=== PATIENT | female | born 1995 | race Asian ===

== ENCOUNTER 2025-07-19 05:20 | Inpatient (IN) ==
--- NOTE | 2025-07-12 10:35 | Anesthesiology Consultation ---
Date of Service July 12, 2025 Assessment & Plan (1) Encounter for pre-operative examination: - Per button puncher on 07/12/25: No known infectious disease contacts, current infectious disease symptoms in past 10 days or COVID positive test result in the past 30 days. 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 History Surgery Operation Date: 07/19/25 07:30 Proposed Procedures p Section (Delivery of the Baby Through Abdominal Incision) - Rhianna Gupta MD, FACOG Height/Weight Height: 5 ft 2 in Weight: 94.801 kg Allergies Allergy/AdvReac Type Severity Reaction Status Date / Time No Known Allergies Allergy Verified 07/12/25 08:26 Medications Home Medications Medication Instructions Recorded Confirmed Last Taken docosahexaenoic acid 200 mg 1 mg PO DAILY 08/20/24 07/12/25 Unknown capsule ( DHA) aspirin 81 mg tablet 81 mg PO DAILY #30 tabs 05/17/25 07/12/25 Unknown Past Medical History Medical History (Updated 07/12/25 @ 10:33 by Sherlyn Boss PA-C) Breech presentation Dyslipidemia no meds > borderline History of hypertension White coat syndrome with hypertension Past Family History Family History Mother No problems noted. Father Dyslipidemia Fatty liver Denies family history of Ovarian cancer Prostate cancer Breast cancer Colorectal cancer Uterine cancer Past Surgical History Surgical History S/P wisdom tooth extraction Social History Smoking Status: Never smoker Do You Dip or Chew Tobacco: No Hx Alcohol Use: No Hx Substance Use: No substance use type: does not use
[2025-07-19 05:49] LABS: Hematocrit (blood only) 39.5 % (37.0-47.0); Hemoglobin 13.6 g/dl (12.0-16.0); Immature Granulocytes # (auto) 0.15 K/uL (0.01-0.20); Immature Granulocytes % (auto) 1.2 %; Mean Corpuscular Hemoglobin 29.1 pg (25.0-34.0); Mean Corpuscular Volume 84.4 fL (80.0-100.0); Platelet Count 234 K/uL (130-400); RDW Standard Deviation 43.6 fL (36.4-46.3); Red Blood Count 4.68 M/uL (4.20-5.40); White Blood Count 12.14 K/ul (4.8-10.8)
[2025-07-19] MEDS: LACTATED RINGER'S 1,000 ML IV SCH ×3 (05:50→19:36)
[2025-07-19] MEDS: ACETAMINOPHEN 500 MG TAB PO SCH (06:08)
[2025-07-19 06:49] LABS: Total Protein Urine Random 79.7 mg/dl (0-11.9)
[2025-07-19 06:55] LABS: Protein Creatinine Ratio Urine 2.9 (0-0.2)
[2025-07-19] MEDS: NIFEdipine 10 MG CAP PO STA ×2 (06:55→07:23)
[2025-07-19] MEDS: NIFEdipine 10 MG CAP ONE (06:55)
--- NOTE | 2025-07-19 06:56 | History & Physical Report ---
Date of Service July 19, 2025 Assessment & Plan (1) Breech presentation: Plan: section. The patient was counseled to the nature of the procedure including alternatives such as labor. Risks were discussed including bleeding infection injury to bowel bladder ureter vessels and even baby. Deep Vein thrombosis, pulmonary embolus discussed. Breakdown of incision reviewed. Deep vein thrombosis pulmonary embolus hernia and failure of the incision to heal were discussed Patient verbalized understanding of this and was given ample time to ask questions Admission and Anticipated Discharge Date Admission Date: July 19, 2025 History of Present Illness Primary Care Provider: SELIN Rios Estimated Delivery Date Method Current WG Current Estimate 07/22/25 Ultrasound #1 39w 0d Other Estimates 07/09/25 LMP (Certain) 40w 6d LMP: 10/02/24 : 1 Full term: 0 Premature: 0 Total Number of Induced Abortions: 0 Total Number of Spontaneous Abortions: 0 Ectopics: 0 Multiple births: 0 Number of Living Children: 0 and Delivery Plans ?white coat htn -baby asa (meets criteria separately as well) -baseline bloodwork Rubella Equivocal *PPX MMR BREECH 36wks C/S SCHEDULED FOR 07/19/[address] CALLAHAN Allergies Allergy/AdvReac Type Severity Reaction Status Date / Time No Known Allergies Allergy Verified 07/19/25 05:25 Home Medications Medication Instructions Recorded Confirmed Type docosahexaenoic acid 200 mg 1 mg PO DAILY 08/20/24 07/19/25 History capsule ( DHA) aspirin 81 mg tablet 81 mg PO DAILY #30 tabs 05/17/25 07/19/25 Rx Patient History Medical History Breech presentation Dyslipidemia no meds > borderline History of hypertension White coat syndrome with hypertension Surgical History S/P wisdom tooth extraction Family History Mother No problems noted. Father Dyslipidemia Fatty liver Denies family history of Ovarian cancer Prostate cancer Breast cancer Colorectal cancer Uterine cancer Social History Smoking Status: Never smoker Second Hand Exposure: No; Do You Dip or Chew Tobacco: No; Tobacco Cessation Education Requested by Patient: No Hx Alcohol Use: No Hx Substance Use: No Preferred Language: Cook Islander Communication Ability: Effective Visual Impairment: No Limitations Hearing Ability: Normal Human Services Care Specialist Required: No Beliefs That Will Affect Care: None marital status: marital status details: Armen (32) [phone] Current Living Situation: Spouse and Family Current Living Situation Comment: lives with spouse, and step son 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 Other Information That Helps Us Care for You: No Feels Safe at Home: Yes Safety Concerns: Feels Safe At This Time Childhood Exposure to Second-Hand Smoke: Yes Diet: regular caffeine: Yes during the past year weight has: remained stable Dental Care, Regularly: Yes Physical Activity Frequency: 5-6 Times per Week Seatbelt Use: always Sunscreen Use: Yes Assistive Devices: Glasses Physical Exam Constitutional: WD/WN, vitals as above well developed and well nourished Respiratory: normal respiratory effort, lungs clear to auscultation normal respiratory effort Cardiovascular: RRR, no murmur, no edema Gastrointestinal (Abdomen): normal bowel sounds, soft, nontender, no hepatosplenomegaly Results & Data Vital Signs (Past 12 Hours) Vital Signs Temp Pulse Resp BP 07/19/25 06:49 93 H 187/119 H 07/19/25 06:16 102 H 181/116 H 07/19/25 06:04 96 H 183/115 H 07/19/25 05:48 104 H 182/116 H 07/19/25 05:37 98.2 F 20 Coding Level of Care Code None Diagnoses Breech presentation O32.1XX0
--- NOTE | 2025-07-19 07:10 | History & Physical Report ---
Date of Service July 19, 2025 Assessment & Plan Admission and Anticipated Discharge Date Admission Date: July 19, 2025 History of Present Illness Chief Complaint: breech presentation Primary Care Provider: SELIN Rios 29yo G Allergies Allergy/AdvReac Type Severity Reaction Status Date / Time No Known Allergies Allergy Verified 07/19/25 05:25 Home Medications Medication Instructions Recorded Confirmed Type docosahexaenoic acid 200 mg 1 mg PO DAILY 08/20/24 07/19/25 History capsule ( DHA) aspirin 81 mg tablet 81 mg PO DAILY #30 tabs 05/17/25 07/19/25 Rx Patient History Medical History Breech presentation Dyslipidemia no meds > borderline History of hypertension White coat syndrome with hypertension Surgical History S/P wisdom tooth extraction Family History Mother No problems noted. Father Dyslipidemia Fatty liver Denies family history of Ovarian cancer Prostate cancer Breast cancer Colorectal cancer Uterine cancer Social History Smoking Status: Never smoker Second Hand Exposure: No; Do You Dip or Chew Tobacco: No; Tobacco Cessation Education Requested by Patient: No Hx Alcohol Use: No Hx Substance Use: No Preferred Language: Kyrgyz Communication Ability: Effective Visual Impairment: No Limitations Hearing Ability: Normal Quality Engineer Medical Device Required: No Beliefs That Will Affect Care: None marital status: marital status details: Armen (32) [phone] Current Living Situation: Spouse and Family Current Living Situation Comment: lives with spouse, and step son 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 Information That Helps Us Care for You: No Feels Safe at Home: Yes Safety Concerns: Feels Safe At This Time Childhood Exposure to Second-Hand Smoke: Yes Diet: regular caffeine: Yes during the past year weight has: remained stable Dental Care, Regularly: Yes Physical Activity Frequency: 5-6 Times per Week Seatbelt Use: always Sunscreen Use: Yes Assistive Devices: Glasses Results & Data Vital Signs (Past 12 Hours) Vital Signs Temp Pulse Resp BP 07/19/25 06:49 93 H 187/119 H 07/19/25 06:16 102 H 181/116 H 07/19/25 06:04 96 H 183/115 H 07/19/25 05:48 104 H 182/116 H 07/19/25 05:37 36.8 C 20 Coding
[2025-07-19] MEDS: CITRIC ACID/SODIUM CITRATE 15 ML UDC PO SCH (07:24)
[2025-07-19 07:31] LABS: Anion Gap 9.0 (3-11); Bilirubin,Total 0.4 mg/dl (0.2-1.0); Calcium 8.8 mg/dl (8.6-10.3); Carbon Dioxide 22.0 mmol/L (21-32); Chloride 105.0 mmol/L (98-107); Potassium 4.1 mmol/L (3.5-5.1); Sodium 136.0 mmol/L (136-145)
[2025-07-19] MEDS ORDERED: MoRPHine SULFATE PF 1 MG/ML 10 ML AMP/VIAL ONE (07:32)
[2025-07-19] MEDS ORDERED: PHENYLEPHRINE HCL 25 MG/250 ML NSS IV ONE (07:32)
[2025-07-19 07:37] LABS: Alanine Aminotransferase 12.0 U/L (7-52); Albumin Globulin Ratio 1.1 (0.9-2); Alkaline Phosphatase 102.0 U/L (34-104); Blood Urea Nitrogen 12.0 mg/dl (6-23); Creatinine Clr Calc Pharmacy 175.6 ml/min; Globulin 3.0 gm/dl (2.5-4.0); Glucose 76.0 mg/dl (70-99(Fasting)); Total Protein 6.4 gm/dl (6.0-8.3)
[2025-07-19] MEDS ORDERED: OXYTOCIN 10 UNITS/ML VIAL ONE ×2 (08:18)
[2025-07-19] MEDS ORDERED: MEPERIDINE HCL 25 MG/ML CARP/VIAL IV PRN (08:34)
[2025-07-19] MEDS ORDERED: ONDANSETRON INJ 2 MG/ML 2 ML VIAL IV PRN ×2 (08:34→08:43)
[2025-07-19] MEDS ORDERED: NALBUPHINE HCL INJ 10 MG/ML AMP IV PRN (08:34)
[2025-07-19] MEDS ORDERED: diphenhydrAMINE 50 MG/ML VIAL IV PRN (08:34)
[2025-07-19] MEDS ORDERED: NALOXONE HCL 1 MG in SODIUM CHLORIDE 0.9% 1,000 ML IV PRN (08:34)
[2025-07-19] MEDS ORDERED: PROMETHAZINE 6.25 MG/50.25 ML BAG IV PRN (08:34)
[2025-07-19] MEDS ORDERED: NALOXONE HCL 0.4 MG/1 ML VIAL/CARP IV PRN (08:34)
[2025-07-19] MEDS ORDERED: NALOXONE HCL 0.08 MG in SYRINGE 1.8 ML IV PRN (08:34)
[2025-07-19] MEDS ORDERED: KETOROLAC 30 MG/ML VIAL IV PRN (08:34)
[2025-07-19] MEDS ORDERED: ACETAMINOPHEN 1,000 MG/100 ML VIAL IV PRN (08:34)
[2025-07-19] MEDS ORDERED: HYDROmorphone INJ 0.5 MG/0.5 ML SYR IV PRN (08:34)
[2025-07-19] MEDS ORDERED: MoRPHine SULFATE 2 MG/ML CARP IV PRN (08:34)
[2025-07-19] MEDS ORDERED: MoRPHine SULFATE PF 1 MG/ML 10 ML AMP/VIAL INT SPINAL ONE (08:34)
[2025-07-19] MEDS ORDERED: LACTATED RINGER'S 500 ML IV PRN (08:34)
[2025-07-19] MEDS ORDERED: ONDANSETRON INJ 2 MG/ML 2 ML VIAL ONE (08:37)
[2025-07-19] MEDS ORDERED: ZOLPIDEM TARTRATE 5 MG TAB PO PRN (08:43)
[2025-07-19] MEDS ORDERED: MAGNESIUM HYDROXIDE SUSP 30 ML UDC PO PRN (08:43)
[2025-07-19] MEDS ORDERED: BENZOCAINE 20% SPRY 85 APPLN/85 GM CAN EXT PRN (08:43)
[2025-07-19] MEDS ORDERED: HYDROCORTISONE ACETATE 25 MG SUPP PR PRN (08:43)
[2025-07-19] MEDS ORDERED: SENNA 8.6 MG TAB PO PRN (08:43)
[2025-07-19] MEDS ORDERED: CALCIUM CARBONATE 500 MG CHEWABLE TAB PO PRN (08:43)
[2025-07-19] MEDS ORDERED: PROMETHAZINE 12.5 MG/50.5 ML BAG IV PRN (08:43)
[2025-07-19] MEDS ORDERED: SODIUM CHLORIDE 0.9% 1,000 ML IV SCH (08:45)
[2025-07-19] MEDS ORDERED: NO NARCOTICS OR SEDATIVES SCH (08:45)
[2025-07-19] MEDS ORDERED: DC INTRASPINAL MORPHINE SCH (08:45)
[2025-07-19] MEDS ORDERED: MAG SULFATE 50% 1GM/2ML 10ML VIAL IV ONE (08:47)
[2025-07-19] MEDS: OXYTOCIN 20 UNITS/LR 1,002 ML IV SCH (08:59)
[2025-07-19] MEDS: KETOROLAC 30 MG/ML VIAL IV PRN (09:00)
[2025-07-19] MEDS: MAGNESIUM SULFATE / WTR 40 GM/1,000 ML BAG IV SCH (09:08)
[2025-07-19] MEDS: KETOROLAC 30 MG/ML VIAL IV SCH (09:27)
[2025-07-19] MEDS: MAG SULFATE 4GM BOLUS FROM BAG IV ONE (10:11)
[2025-07-19] MEDS: DIPHTHER/TETAN/PERTUS Vaccine (Tdap, Adol/Adult) 0.5mL IM ONE (10:39)
--- NOTE | 2025-07-19 10:59 | Operative Report ---
PG Post Operative Report Pre & Post Diagnosis Operation Date: 07/19/25 07:30 Pre-Op Diagnosis: (1) Breech presentation Post-Op Diagnosis: (1) Breech presentation I identified the patient and participated in the time-out.: Yes Procedure Operation Date: 07/19/25 07:30 Actual Procedures p Section (Delivery of the Baby Through Abdominal Incision)For delivery of live male at 0816(Bilateral) - Rhianna Gupta MD, FACOG Surgeon Rhianna Gupta MD, FACOG Ecclesiastical Worker Dr. Hartmann Estimated Blood Loss 237 Findings Consistent with Post-Op Diagnosis normal uterus adnexa Specimens cord blood Description of Procedure Description of Procedure Regional anesthetic had been given by anesthesia patient was prepped and draped with a leftward tilt preoperative antibiotics had been given in appropriate timing by anesthesiology. Once the prep was allowed to fully dry timeout was performed. Pickups with teeth were used to test the incision area was found to be adequate for incision as the patient did not feel sharp pain. Scalpel was used to make a Pfannenstiel incision on the lower abdomen. We then cut through the subcutaneous fat down to the level of the anterior rectus sheath fascia this was cut in the midline and then extended laterally with the curved Persaud scissors. At this stage we then placed 2 Julien clamps on the anterior aspect of the fascia. Using the curved Persaud's we are able to dissect the fascia superiorly away from the rectus muscles. Care was taken to maintain hemostasis. Julien clamps were then placed to the inferior aspect of the anterior sheath of the fascia. Fascia was then dissected away from the rectus muscles inferiorly towards the pubic bone. A Julien was then placed in the midline both inferiorly and superiorly. This was to allow exposure by retraction rectus muscles were in the midline with were then able to cut through the peritoneum and then enter the peritoneal cavity. Opening was enlarged to allow exposure of the peritoneal cavity both superiorly and inferiorly. Once adequate space was obtained a bladder retractor was placed to expose the lower segment Metzenbaums were used to dissect the bladder flap inferiorly away from the uterus. This was done sharply bladder retractor was then repositioned to expose the lower segment of the uterus Fresh scalpel was used to make a low transverse incision on the uterus. Uterus was then entered bluntly with the operators finger, membranes ruptured and the opening was enlarged using the operators fingers bluntly pulling superiorly and inferiorly to allow exposure. Baby was delivered by first flexion of the breech to allow elevation out of the pelvis then rotation of the back to anterior gentle traction on the baby delivering both legs and then arms were swept towards the middle of the chest to allow delivery gentle traction on the baby no cord and then head was delivered without extensive extension by ensuring flexion of the head with a gentle finger and the baby's mouth live vigorous male . Live vigorous infant. Fluid was clear cord clamped and cut cord gases obtained cord blood obtained baby handed to pediatrics. Placenta removed was removed with traction we ensure the entire placenta was removed with a moist lap sponge into the uterus Uterus was then exteriorized. IV Pitocin had been started by anesthesia tone improved there were no extensions the uterus was then closed using 0 Monocryl in a 2 layer closure the first layer closed in a running locked fashion from left to right and then a second closure from left to right in a running nonlocked fashion. At this stage hemostasis was excellent. Uterus was placed back in the peritoneal cavity with suction irrigation out and inspection of the uterus at this stage revealed excellent hemostasis Retractors were removed urine color was clear at this stage of the case we inspected the rectus muscles they were hemostatic fascia was closed with 0 Vicryl subcutaneous fat was irrigated and closed with 3-0 Vicryl skin closed with 4-0 subcuticular Monocryl Adnexa were normal uterus was normal there was no septum in the uterus I attest to the content of the Intraoperative Record and any orders documented therein. Any exceptions are noted below. I attest to the content of the Intraoperative Record and any orders documented therein. Any exceptions are noted below. OB Procedure Charges 97736
[2025-07-19] MEDS ORDERED: SODIUM CHLORIDE 0.9% 100 ML IV PRN (11:02)
[2025-07-19] MEDS: ACETAMINOPHEN 325 MG TAB PO SCH (15:06)
--- NOTE | 2025-07-19 15:08 | Anesthesiology Progress Note ---
Date of Service July 19, 2025 Anesthesia Post Procedure Vital Signs Vital Signs: Temp Pulse Resp BP Pulse Ox O2 Del Method 07/19/25 15:03 91 07/19/25 15:03 100 H 07/19/25 14:58 90 07/19/25 14:58 98 H 07/19/25 14:53 89 L 07/19/25 14:53 101 H 07/19/25 14:49 100 H 07/19/25 14:49 115/72 07/19/25 14:48 91 07/19/25 14:48 101 H 07/19/25 14:43 91 07/19/25 14:43 100 H 07/19/25 14:38 93 07/19/25 14:38 109 H 07/19/25 14:33 93 07/19/25 14:33 107 H 07/19/25 14:28 91 07/19/25 14:28 101 H 07/19/25 14:23 91 07/19/25 14:23 101 H 07/19/25 14:19 100 H 07/19/25 14:19 101/62 07/19/25 14:18 91 07/19/25 14:18 99 H 07/19/25 14:13 90 07/19/25 14:13 101 H 07/19/25 14:08 92 07/19/25 14:08 101 H 07/19/25 14:03 95 07/19/25 14:03 108 H 07/19/25 13:58 94 07/19/25 13:58 103 H 07/19/25 13:53 91 07/19/25 13:53 102 H 07/19/25 13:49 103 H 07/19/25 13:49 115/64 07/19/25 13:48 93 07/19/25 13:48 105 H 07/19/25 13:43 94 07/19/25 13:43 102 H 07/19/25 13:41 86 L 07/19/25 13:41 102 H 07/19/25 13:38 92 07/19/25 13:38 100 H 07/19/25 13:33 94 07/19/25 13:33 107 H 07/19/25 13:28 91 07/19/25 13:28 102 H 07/19/25 13:23 93 07/19/25 13:23 101 H 07/19/25 13:19 100 H 07/19/25 13:19 114/67 07/19/25 13:18 93 07/19/25 13:18 102 H 07/19/25 13:13 95 07/19/25 13:13 104 H 07/19/25 13:08 89 L 07/19/25 13:08 107 H 07/19/25 13:03 92 07/19/25 13:03 100 H 07/19/25 13:00 16 07/19/25 13:00 18 98 07/19/25 12:58 90 07/19/25 12:58 101 H 07/19/25 12:53 93 07/19/25 12:53 98 H 07/19/25 12:51 87 L 07/19/25 12:51 102 H 07/19/25 12:49 100 H 07/19/25 12:49 101/63 07/19/25 12:48 87 L 07/19/25 12:48 102 H 07/19/25 12:43 90 07/19/25 12:43 101 H 07/19/25 12:41 86 L 07/19/25 12:41 101 H 07/19/25 12:38 94 07/19/25 12:38 101 H 07/19/25 12:33 95 07/19/25 12:33 103 H 07/19/25 12:28 94 07/19/25 12:28 102 H 07/19/25 12:23 92 07/19/25 12:23 106 H 07/19/25 12:21 105 H 07/19/25 12:21 99/59 L 07/19/25 12:19 103 H 07/19/25 12:19 82/47 L 07/19/25 12:18 89 L 07/19/25 12:18 104 H 07/19/25 12:13 94 07/19/25 12:13 106 H 07/19/25 12:08 95 07/19/25 12:08 107 H 07/19/25 12:03 95 07/19/25 12:03 112 H 07/19/25 12:00 18 07/19/25 12:00 18 98 07/19/25 12:00 18 07/19/25 11:58 97 07/19/25 11:58 118 H 07/19/25 11:53 97 07/19/25 11:53 107 H 07/19/25 11:49 103 H 07/19/25 11:49 107/59 L 07/19/25 11:48 94 07/19/25 11:48 109 H 07/19/25 11:43 95 07/19/25 11:43 108 H 07/19/25 11:38 95 07/19/25 11:38 106 H 07/19/25 11:33 92 07/19/25 11:33 104 H 07/19/25 11:28 95 07/19/25 11:28 104 H 07/19/25 11:23 94 07/19/25 11:23 97 H 07/19/25 11:19 96 H 112/58 L 07/19/25 11:18 97 H 93 07/19/25 11:13 99 H 91 07/19/25 11:08 98 H 92 07/19/25 11:05 100 H 86 L 07/19/25 11:03 99 H 94 07/19/25 11:00 18 07/19/25 10:58 102 H 95 07/19/25 10:53 99 H 91 07/19/25 10:49 18 07/19/25 10:49 96 H 121/70 07/19/25 10:48 97 H 96 07/19/25 10:43 101 H 95 07/19/25 10:38 102 H 96 07/19/25 10:33 100 H 90 07/19/25 10:32 99 H 86 L 07/19/25 10:28 97 H 93 07/19/25 10:23 102 H 96 07/19/25 10:19 18 07/19/25 10:19 98 H 115/65 07/19/25 10:18 101 H 95 07/19/25 10:13 103 H 95 07/19/25 10:08 101 H 95 07/19/25 10:03 100 H 94 07/19/25 10:00 16 07/19/25 09:58 100 H 96 07/19/25 09:53 104 H 95 07/19/25 09:49 18 07/19/25 09:49 107 H 124/63 07/19/25 09:48 106 H 95 07/19/25 09:43 123 H 97 07/19/25 09:40 97 H 84 L 07/19/25 09:39 20 07/19/25 09:39 92 H 119/61 07/19/25 09:38 94 H 88 L 07/19/25 09:35 98 H 86 L 07/19/25 09:33 93 H 91 07/19/25 09:29 16 07/19/25 09:29 102 H 113/61 07/19/25 09:28 103 H 97 07/19/25 09:23 115 H 96 07/19/25 09:22 121 H 114/65 07/19/25 09:20 129 H 112/73 07/19/25 09:19 16 07/19/25 09:18 98 H 98 07/19/25 09:13 101 H 96 07/19/25 09:10 96 H 108/58 L 07/19/25 09:09 18 07/19/25 09:08 96 H 95 07/19/25 09:04 96 H 117/60 07/19/25 09:03 100 H 95 07/19/25 08:59 16 07/19/25 08:59 97 H 111/59 L 07/19/25 08:58 97 H 98 07/19/25 08:53 97 H 98 07/19/25 08:49 16 Room Air 07/19/25 08:49 36.5 C 20 07/19/25 08:49 104 H 109/57 L 07/19/25 08:48 103 H 98 07/19/25 07:30 22 07/19/25 07:30 36.9 C 22 07/19/25 07:20 103 H 155/94 H 07/19/25 07:15 101 H 169/102 H 07/19/25 07:10 103 H 176/112 H 07/19/25 06:49 93 H 187/119 H 07/19/25 06:16 102 H 181/116 H 07/19/25 06:04 96 H 183/115 H 07/19/25 05:48 104 H 182/116 H 07/19/25 05:37 36.8 C 20 Transfer of Care Handoff Completed per policy Notes Mental Status: alert / awake / arousable and participated in evaluation Nausea / Vomiting: adequately controlled Pain: adequately controlled Airway Patency, RR, SpO2: stable & adequate BP & HR: stable & adequate Hydration State: stable & adequate Neuraxial Anesthesia: was administered and sensory block is resolving Anesthetic Complications: no major complications apparent and Pt Satisfied with anesthetic care
[2025-07-19] MEDS: SIMETHICONE 80 MG CHEW PO SCH (16:00)
[2025-07-19] MEDS: DOCUSATE SODIUM 100 MG CAP PO SCH (22:15)
[2025-07-20] MEDS ORDERED: diphenhydrAMINE 50 MG/ML VIAL IV PRN (02:34)
[2025-07-20] MEDS ORDERED: HYDROmorphone INJ 0.5 MG/0.5 ML SYR IV PRN (02:34)
[2025-07-20] MEDS ORDERED: diphenhydrAMINE Capsule 25 MG CAP PO PRN (02:34)
[2025-07-20 06:15] LABS: Hematocrit (blood only) 32.1 % (37.0-47.0); Hemoglobin 11.4 g/dl (12.0-16.0); Immature Granulocytes # (auto) 0.10 K/uL (0.01-0.20); Immature Granulocytes % (auto) 0.8 %; Mean Corpuscular Hemoglobin 30.2 pg (25.0-34.0); Mean Corpuscular Volume 85.1 fL (80.0-100.0); Platelet Count 183 K/uL (130-400); RDW Standard Deviation 44.5 fL (36.4-46.3); Red Blood Count 3.77 M/uL (4.20-5.40); White Blood Count 12.77 K/ul (4.8-10.8)
--- NOTE | 2025-07-20 06:40 | Obstetrical Progress Note ---
Date of Service <Vanita Ashraf DO - Last Filed: 07/20/25 07:49> July 20, 2025 Assessment & Plan <Vanita Ashraf DO - Last Filed: 07/20/25 07:49> (1) care following delivery: Plan 29 yo post- day 1 s/p . Feels well today. Vital signs stable Continue post- care Encourage ambulation when off Mg and Pain controlled with ibuprofen Hgb stable Patient on Mg - continue to monitor, plan to stop Mg at 9am today morning <Larissa Carlson MD, FACOG - Last Filed: 07/20/25 07:54> (1) care following delivery: Subjective <Vanita Ashraf DO - Last Filed: 07/20/25 07:49> 29 yo post- day 1 s/p . Ambulation: no Voiding: no, catheter in Passing Gas:: no Passing Stool:: no Diet Tolerance:: regular diet Lochia:: Small Feeding Type:: breast feeding Current Pain Level: 2/10 Resting comfortably this AM in NAD. She is on Mag which is scheduled to get stopped at 9am this morning. Denies HARTMAN, CP, SOB, N/V/D, LE pain/swelling. Review of Systems All systems reviewed & are unremarkable except as noted in HPI & below Physical Exam <Vanita Ashraf DO - Last Filed: 07/20/25 07:49> General: patient resting comfortably, NAD, non-toxic in appearance, AA&O x 4, answers questions appropriately. Skin: warm, dry, intact HEENT: NC/AT, anicteric sclera, conjunctiva without injection, moist mucus membranes. Heart: +S1/S2, regular, no m/r/g Lungs: equal air entry bilaterally, no rales/rhonchi/wheezes Abd: +BS, soft, NT/ND, uterine fundus firm at umbilicus, caesarean incision C/D/I. Ext: warm, no clubbing/cyanosis or edema, Star's neg. Neuro: nonfocal, patient AA&O x 4, speech intact, no facial droop, moving all extremities on command. Results & Data <Vanita Ashraf - Last Filed: 07/20/25 07:49> Vital Signs (Past 12 Hours) Vital Signs Temp Pulse Resp BP Pulse Ox 07/20/25 06:33 88 96 07/20/25 06:28 87 96 07/20/25 06:23 91 H 97 07/20/25 06:18 91 H 98 07/20/25 06:13 95 H 97 07/20/25 06:08 91 H 95 07/20/25 06:03 95 H 93 07/20/25 06:00 16 07/20/25 05:58 87 93 07/20/25 05:53 94 H 93 07/20/25 05:49 85 125/79 07/20/25 05:48 87 92 07/20/25 05:43 86 93 07/20/25 05:38 89 92 07/20/25 05:33 88 94 07/20/25 05:28 87 94 07/20/25 05:23 88 92 07/20/25 05:18 89 93 07/20/25 05:13 91 H 93 07/20/25 05:08 89 95 07/20/25 05:03 86 97 07/20/25 05:00 18 95 07/20/25 04:58 85 97 07/20/25 04:53 86 98 07/20/25 04:49 87 131/83 07/20/25 04:48 87 89 L 07/20/25 04:43 85 96 07/20/25 04:38 96 H 97 07/20/25 04:33 94 H 97 07/20/25 04:28 91 H 98 07/20/25 04:23 91 H 96 07/20/25 04:18 92 H 98 07/20/25 04:13 99 H 98 07/20/25 04:08 93 H 92 07/20/25 04:03 89 97 07/20/25 04:00 18 97 07/20/25 03:58 91 H 94 07/20/25 03:53 83 95 07/20/25 03:49 80 122/78 07/20/25 03:48 86 96 07/20/25 03:43 90 94 07/20/25 03:38 91 H 95 07/20/25 03:33 86 94 07/20/25 03:28 88 94 07/20/25 03:23 85 93 07/20/25 03:18 89 92 07/20/25 03:13 87 96 07/20/25 03:08 88 95 07/20/25 03:03 87 95 07/20/25 03:00 36.8 C 18 07/20/25 03:00 18 99 07/20/25 03:00 18 07/20/25 02:58 89 95 07/20/25 02:53 105 H 96 07/20/25 02:49 90 127/76 07/20/25 02:48 94 H 95 07/20/25 02:43 95 H 95 07/20/25 02:38 99 H 94 07/20/25 02:33 91 H 93 07/20/25 02:28 91 H 95 07/20/25 02:23 99 H 95 07/20/25 02:18 90 94 07/20/25 02:13 97 H 96 07/20/25 02:08 93 H 96 07/20/25 02:03 92 H 95 07/20/25 02:00 14 95 07/20/25 02:00 14 07/20/25 01:58 93 H 94 07/20/25 01:53 100 H 94 07/20/25 01:49 87 139/89 07/20/25 01:48 88 92 07/20/25 01:43 86 96 07/20/25 01:38 88 95 07/20/25 01:33 86 95 07/20/25 01:28 91 H 96 07/20/25 01:23 103 H 96 07/20/25 01:18 96 H 93 07/20/25 01:13 92 H 94 07/20/25 01:08 102 H 96 07/20/25 01:03 92 H 96 07/20/25 01:00 16 95 07/20/25 01:00 16 07/20/25 00:58 93 H 96 07/20/25 00:53 92 H 97 07/20/25 00:49 101 H 132/79 07/20/25 00:48 101 H 97 07/20/25 00:43 108 H 96 07/20/25 00:38 102 H 97 07/20/25 00:33 96 H 95 07/20/25 00:28 91 H 95 07/20/25 00:23 94 H 92 07/20/25 00:18 85 92 07/20/25 00:13 82 93 07/20/25 00:08 82 93 07/20/25 00:03 83 94 07/20/25 00:00 14 97 07/19/25 23:58 95 07/19/25 23:58 82 07/19/25 23:53 96 07/19/25 23:53 94 H 07/19/25 23:49 84 07/19/25 23:49 128/80 07/19/25 23:48 92 07/19/25 23:48 88 07/19/25 23:43 93 07/19/25 23:43 88 07/19/25 23:38 94 07/19/25 23:38 92 H 07/19/25 23:33 96 07/19/25 23:33 89 07/19/25 23:28 95 07/19/25 23:28 90 07/19/25 23:23 95 07/19/25 23:23 98 H 07/19/25 23:18 96 07/19/25 23:18 89 07/19/25 23:13 96 07/19/25 23:13 92 H 07/19/25 23:08 95 07/19/25 23:08 94 H 07/19/25 23:03 96 07/19/25 23:03 102 H 07/19/25 23:00 16 98 07/19/25 23:00 37.1 C 07/19/25 22:58 96 07/19/25 22:58 103 H 07/19/25 22:53 95 07/19/25 22:53 96 H 07/19/25 22:49 97 H 07/19/25 22:49 122/72 07/19/25 22:48 95 07/19/25 22:48 96 H 07/19/25 22:43 97 07/19/25 22:43 101 H 07/19/25 22:38 95 07/19/25 22:38 101 H 07/19/25 22:33 97 07/19/25 22:33 103 H 07/19/25 22:28 97 07/19/25 22:28 101 H 07/19/25 22:23 96 07/19/25 22:23 97 H 07/19/25 22:18 96 07/19/25 22:18 100 H 07/19/25 22:13 96 07/19/25 22:13 105 H 07/19/25 22:08 94 07/19/25 22:08 95 H 07/19/25 22:03 97 07/19/25 22:03 100 H 07/19/25 22:00 18 97 07/19/25 21:58 97 07/19/25 21:58 100 H 07/19/25 21:53 97 07/19/25 21:53 103 H 07/19/25 21:49 95 H 07/19/25 21:49 132/78 07/19/25 21:48 96 07/19/25 21:48 101 H 07/19/25 21:43 93 07/19/25 21:43 97 H 07/19/25 21:38 95 07/19/25 21:38 105 H 07/19/25 21:33 98 07/19/25 21:33 104 H 07/19/25 21:28 96 07/19/25 21:28 98 H 07/19/25 21:23 97 07/19/25 21:23 107 H 07/19/25 21:18 97 07/19/25 21:18 98 H 07/19/25 21:13 97 07/19/25 21:13 99 H 07/19/25 21:08 98 07/19/25 21:08 109 H 07/19/25 21:03 96 07/19/25 21:03 107 H 07/19/25 21:00 18 99 07/19/25 21:00 16 07/19/25 20:58 96 07/19/25 20:58 97 H 07/19/25 20:53 94 07/19/25 20:53 96 H 07/19/25 20:49 90 07/19/25 20:49 134/82 07/19/25 20:48 94 07/19/25 20:48 94 H 07/19/25 20:43 97 07/19/25 20:43 98 H 07/19/25 20:38 97 07/19/25 20:38 90 07/19/25 20:33 95 07/19/25 20:33 95 H 07/19/25 20:28 98 07/19/25 20:28 105 H 07/19/25 20:23 93 07/19/25 20:23 93 H 07/19/25 20:18 93 07/19/25 20:18 95 H 07/19/25 20:13 92 07/19/25 20:13 91 H 07/19/25 20:08 95 07/19/25 20:08 94 H 07/19/25 20:03 93 07/19/25 20:03 93 H 07/19/25 20:00 16 98 07/19/25 20:00 18 07/19/25 19:58 95 07/19/25 19:58 102 H 07/19/25 19:53 95 07/19/25 19:53 96 H 07/19/25 19:49 94 H 07/19/25 19:49 106/55 L 07/19/25 19:48 94 07/19/25 19:48 96 H 07/19/25 19:43 96 07/19/25 19:43 100 H 07/19/25 19:38 95 07/19/25 19:38 106 H 07/19/25 19:33 95 07/19/25 19:33 110 H 07/19/25 19:28 94 07/19/25 19:28 96 H 07/19/25 19:23 94 07/19/25 19:23 98 H 07/19/25 19:18 93 07/19/25 19:18 99 H 07/19/25 19:13 93 07/19/25 19:13 98 H 07/19/25 19:08 98 07/19/25 19:08 94 H 07/19/25 19:05 16 98 07/19/25 19:03 92 07/19/25 19:03 95 H 07/19/25 19:01 16 07/19/25 19:01 36.8 C 16 07/19/25 18:58 94 07/19/25 18:58 104 H 07/19/25 18:53 94 07/19/25 18:53 101 H 07/19/25 18:49 95 H 07/19/25 18:49 117/72 07/19/25 18:48 93 07/19/25 18:48 96 H 07/19/25 18:43 98 07/19/25 18:43 103 H Laboratory Results OB Labs: Blood Type O Positive 12/31/24 Antibody Screen NEGATIVE 12/31/24 Hgb 13.4 g/dl (12.0-16.0) 04/30/25 Hct 39.4 % (37.0-47.0) 04/30/25 MCV 85.5 fL (80.0-100.0) 12/31/24 Plt Count 314 K/uL (130-400) 12/31/24 Rubella IgG Antibody Equivocal (Immune) L 12/31/24 Treponema pallidum Ab Negative (Negative) 04/30/25 Hep Bs Antigen Negative (Negative) 12/31/24 Hepatitis C Antibody Negative (Negative) 12/31/24 Hepatitis C Ab (EIA) NON-REACTIVE (NON-REACTIVE) 01/15/24 HIV 1&2 Ab/P24 Ag 4thGn Negative (Negative) 12/31/24 Glucose 1 Hr 50 gm 133 mg/dl (70-130) H 04/30/25 OB Optional Labs: Chlamydia trachomatis RNA Not Detected (NotDetected) 12/31/24 Neisseria gonorrhoeae RNA Not Detected (NotDetected) 12/31/24 Thyroid Stimulating Hormone (TSH) 1.804 uIu/ml (0.300-4.500) 08/26/24 Supervising Physician <Larissa Carlson MD, FACOG - Last Filed: 07/20/25 07:54> Co-Signing Physician Notes Resident Physician Supervision Note: I interviewed and examined the patient. Discussed with Dr. Dominguez and agree with findings and plan as documented in the note. Any exceptions or clarifications are listed here: Doing well. Plan d/c mag at 9am then transfer to the floor , see other note. Documented By: Larissa Carlson MD, FACOG Resident Activity Tracking <Vanita Ashraf DO - Last Filed: 07/20/25 07:49> Resident Involvement: Resident Care Provided Care Provided: OB Delivery
--- NOTE | 2025-07-20 06:42 | Obstetrical Progress Note ---
Date of Service July 20, 2025 Assessment & Plan (1) care following delivery: (2) Preeclampsia: Plan Plan to stop mag at 9am as she will be at 24 hours. Doing overall well. Pressures have been good and uop good. Then plan transfer to the floor. Day #:: 1 Subjective Patient got some rest overnight. She notes no s/s of pet. She is anxious for the mag to be off. Notes no bejarano. Good uop Physical Exam Constitutional WD/WN, vitals as above Cardiovascular Extremities: + edema (tr); no calf tenderness Gastrointestinal (Abdomen) soft, nt, nd, ff/nt at u incision c/d/i Neurologic patellar DTR's 2+ bilat, sensation intact Genitourinary no vaginal lesions, no adnexal mass Results & Data Vital Signs (Past 12 Hours) Vital Signs Temp Pulse Resp BP Pulse Ox 07/20/25 06:38 86 07/20/25 06:33 88 96 07/20/25 06:28 87 96 07/20/25 06:23 91 H 97 07/20/25 06:18 91 H 98 07/20/25 06:13 95 H 97 07/20/25 06:08 91 H 95 07/20/25 06:03 95 H 93 07/20/25 06:00 16 07/20/25 05:58 87 93 07/20/25 05:53 94 H 93 07/20/25 05:49 85 125/79 07/20/25 05:48 87 92 07/20/25 05:43 86 93 07/20/25 05:38 89 92 07/20/25 05:33 88 94 07/20/25 05:28 87 94 07/20/25 05:23 88 92 07/20/25 05:18 89 93 07/20/25 05:13 91 H 93 07/20/25 05:08 89 95 07/20/25 05:03 86 97 07/20/25 05:00 18 95 07/20/25 04:58 85 97 07/20/25 04:53 86 98 07/20/25 04:49 87 131/83 07/20/25 04:48 87 89 L 07/20/25 04:43 85 96 07/20/25 04:38 96 H 97 07/20/25 04:33 94 H 97 07/20/25 04:28 91 H 98 07/20/25 04:23 91 H 96 07/20/25 04:18 92 H 98 07/20/25 04:13 99 H 98 07/20/25 04:08 93 H 92 07/20/25 04:03 89 97 07/20/25 04:00 18 97 07/20/25 03:58 91 H 94 07/20/25 03:53 83 95 07/20/25 03:49 80 122/78 07/20/25 03:48 86 96 07/20/25 03:43 90 94 07/20/25 03:38 91 H 95 07/20/25 03:33 86 94 07/20/25 03:28 88 94 07/20/25 03:23 85 93 07/20/25 03:18 89 92 07/20/25 03:13 87 96 07/20/25 03:08 88 95 07/20/25 03:03 87 95 07/20/25 03:00 36.8 C 18 07/20/25 03:00 18 99 07/20/25 03:00 18 07/20/25 02:58 89 95 07/20/25 02:53 105 H 96 07/20/25 02:49 90 127/76 07/20/25 02:48 94 H 95 07/20/25 02:43 95 H 95 07/20/25 02:38 99 H 94 07/20/25 02:33 91 H 93 07/20/25 02:28 91 H 95 07/20/25 02:23 99 H 95 07/20/25 02:18 90 94 07/20/25 02:13 97 H 96 07/20/25 02:08 93 H 96 07/20/25 02:03 92 H 95 07/20/25 02:00 14 95 07/20/25 02:00 14 07/20/25 01:58 93 H 94 07/20/25 01:53 100 H 94 07/20/25 01:49 87 139/89 07/20/25 01:48 88 92 07/20/25 01:43 86 96 07/20/25 01:38 88 95 07/20/25 01:33 86 95 07/20/25 01:28 91 H 96 07/20/25 01:23 103 H 96 07/20/25 01:18 96 H 93 07/20/25 01:13 92 H 94 07/20/25 01:08 102 H 96 07/20/25 01:03 92 H 96 07/20/25 01:00 16 95 07/20/25 01:00 16 07/20/25 00:58 93 H 96 07/20/25 00:53 92 H 97 07/20/25 00:49 101 H 132/79 07/20/25 00:48 101 H 97 07/20/25 00:43 108 H 96 07/20/25 00:38 102 H 97 07/20/25 00:33 96 H 95 07/20/25 00:28 91 H 95 07/20/25 00:23 94 H 92 07/20/25 00:18 85 92 07/20/25 00:13 82 93 07/20/25 00:08 82 93 07/20/25 00:03 83 94 07/20/25 00:00 14 97 07/19/25 23:58 95 07/19/25 23:58 82 07/19/25 23:53 96 07/19/25 23:53 94 H 07/19/25 23:49 84 07/19/25 23:49 128/80 07/19/25 23:48 92 07/19/25 23:48 88 07/19/25 23:43 93 07/19/25 23:43 88 07/19/25 23:38 94 07/19/25 23:38 92 H 07/19/25 23:33 96 07/19/25 23:33 89 07/19/25 23:28 95 07/19/25 23:28 90 07/19/25 23:23 95 07/19/25 23:23 98 H 07/19/25 23:18 96 07/19/25 23:18 89 07/19/25 23:13 96 07/19/25 23:13 92 H 07/19/25 23:08 95 07/19/25 23:08 94 H 07/19/25 23:03 96 07/19/25 23:03 102 H 07/19/25 23:00 16 98 07/19/25 23:00 37.1 C 07/19/25 22:58 96 07/19/25 22:58 103 H 07/19/25 22:53 95 07/19/25 22:53 96 H 07/19/25 22:49 97 H 07/19/25 22:49 122/72 07/19/25 22:48 95 07/19/25 22:48 96 H 07/19/25 22:43 97 07/19/25 22:43 101 H 07/19/25 22:38 95 07/19/25 22:38 101 H 07/19/25 22:33 97 07/19/25 22:33 103 H 07/19/25 22:28 97 07/19/25 22:28 101 H 07/19/25 22:23 96 07/19/25 22:23 97 H 07/19/25 22:18 96 07/19/25 22:18 100 H 07/19/25 22:13 96 07/19/25 22:13 105 H 07/19/25 22:08 94 07/19/25 22:08 95 H 07/19/25 22:03 97 07/19/25 22:03 100 H 07/19/25 22:00 18 97 07/19/25 21:58 97 07/19/25 21:58 100 H 07/19/25 21:53 97 07/19/25 21:53 103 H 07/19/25 21:49 95 H 07/19/25 21:49 132/78 07/19/25 21:48 96 07/19/25 21:48 101 H 07/19/25 21:43 93 07/19/25 21:43 97 H 07/19/25 21:38 95 07/19/25 21:38 105 H 07/19/25 21:33 98 07/19/25 21:33 104 H 07/19/25 21:28 96 07/19/25 21:28 98 H 07/19/25 21:23 97 07/19/25 21:23 107 H 07/19/25 21:18 97 07/19/25 21:18 98 H 07/19/25 21:13 97 07/19/25 21:13 99 H 07/19/25 21:08 98 07/19/25 21:08 109 H 07/19/25 21:03 96 07/19/25 21:03 107 H 07/19/25 21:00 18 99 07/19/25 21:00 16 07/19/25 20:58 96 07/19/25 20:58 97 H 07/19/25 20:53 94 07/19/25 20:53 96 H 07/19/25 20:49 90 07/19/25 20:49 134/82 07/19/25 20:48 94 07/19/25 20:48 94 H 07/19/25 20:43 97 07/19/25 20:43 98 H 07/19/25 20:38 97 07/19/25 20:38 90 07/19/25 20:33 95 07/19/25 20:33 95 H 07/19/25 20:28 98 07/19/25 20:28 105 H 07/19/25 20:23 93 07/19/25 20:23 93 H 07/19/25 20:18 93 07/19/25 20:18 95 H 07/19/25 20:13 92 07/19/25 20:13 91 H 07/19/25 20:08 95 07/19/25 20:08 94 H 07/19/25 20:03 93 07/19/25 20:03 93 H 07/19/25 20:00 16 98 07/19/25 20:00 18 07/19/25 19:58 95 07/19/25 19:58 102 H 07/19/25 19:53 95 07/19/25 19:53 96 H 07/19/25 19:49 94 H 07/19/25 19:49 106/55 L 07/19/25 19:48 94 07/19/25 19:48 96 H 07/19/25 19:43 96 07/19/25 19:43 100 H 07/19/25 19:38 95 07/19/25 19:38 106 H 07/19/25 19:33 95 07/19/25 19:33 110 H 07/19/25 19:28 94 07/19/25 19:28 96 H 07/19/25 19:23 94 07/19/25 19:23 98 H 07/19/25 19:18 93 07/19/25 19:18 99 H 07/19/25 19:13 93 07/19/25 19:13 98 H 07/19/25 19:08 98 07/19/25 19:08 94 H 07/19/25 19:05 16 98 07/19/25 19:03 92 07/19/25 19:03 95 H 07/19/25 19:01 16 07/19/25 19:01 36.8 C 16 07/19/25 18:58 94 07/19/25 18:58 104 H 07/19/25 18:53 94 07/19/25 18:53 101 H 07/19/25 18:49 95 H 07/19/25 18:49 117/72 07/19/25 18:48 93 07/19/25 18:48 96 H 07/19/25 18:43 98 07/19/25 18:43 103 H
[2025-07-20] MEDS: PRENATAL VITAMIN 1 TAB PO SCH (08:27)
[2025-07-20] MEDS: IBUPROFEN 600 MG TAB PO SCH (08:27)
[2025-07-20] MEDS: FERROUS SULFATE 325 MG TAB PO SCH (08:27)
--- NOTE | 2025-07-20 09:33 | Communication Note ---
Date of Service: July 20, 2025 Patient met in room 420, counseled. Asymptomatic at this time and happy to hear baby doing well in NICU. Wants to be able to go see baby nanette. Discussed stopping mag this morning and observing through the day. Shortly thereafter, patient had a phone call from NICU and a visit from our tentmaker, as well as some reported excitement/nervousness about being able to go see baby. Her BP was then 150's/90s. She remains without RUQ pain, vision change or headache. Will stop mag as planned at 24 hr, but start labetalol 200mg PO BID now as well. My hope is that a beta blocking agent might blunt emotional response-related BP increases and/or treat remaining hypertensive spectrum disorder, whichever is most relevant for Tanisha (or both). Patient needs to be well controlled before she can safely be discharged to home.
[2025-07-20] MEDS: LABETALOL HCL 200 MG TAB PO SCH (09:42)
[2025-07-20] MEDS: LABETALOL HCL 200 MG TAB PO ONE (20:51)
--- NOTE | 2025-07-20 20:54 | Communication Note ---
Date of Service: July 20, 2025 S: Patient sitting upright with FOB at bedside, collecting colostrum. Denies HARTMAN, RUQ pain, vision change. Edema minimal and much improved. FOB leaving soon to go visit NICU. O: BP remains 151/101 one hour after dose of labetalol. Pulse remains 106. LE's trace edema bilateral. DTR 1+. A: Severe preeclampsia, s/p magnesium x24 hours, with persistent hypertension, [facility]. Repeating labs now and adding a one-time catchup dose of 200mg PO labetalol to bring her to 400mg PO this evening. Will trial this dose PO BID, and hope patient may be stable for d/c in AM.
[2025-07-20 20:58] LABS: Hematocrit (blood only) 31.7 % (37.0-47.0); Hemoglobin 10.6 g/dl (12.0-16.0); Immature Granulocytes # (auto) 0.07 K/uL (0.01-0.20); Immature Granulocytes % (auto) 0.7 %; Mean Corpuscular Hemoglobin 29.1 pg (25.0-34.0); Mean Corpuscular Volume 87.1 fL (80.0-100.0); Platelet Count 206 K/uL (130-400); RDW Standard Deviation 47.3 fL (36.4-46.3); Red Blood Count 3.64 M/uL (4.20-5.40); White Blood Count 10.16 K/ul (4.8-10.8)
[2025-07-20 21:29] LABS: Anion Gap 10.0 (3-11); Bilirubin,Total 0.2 mg/dl (0.2-1.0); Calcium 8.2 mg/dl (8.6-10.3); Carbon Dioxide 23.0 mmol/L (21-32); Chloride 102.0 mmol/L (98-107); Potassium 3.9 mmol/L (3.5-5.1); Sodium 135.0 mmol/L (136-145)
[2025-07-20 21:35] LABS: Alanine Aminotransferase 11.0 U/L (7-52); Albumin Globulin Ratio 1.0 (0.9-2); Alkaline Phosphatase 77.0 U/L (34-104); Blood Urea Nitrogen 13.0 mg/dl (6-23); Creatinine Clr Calc Pharmacy 157.1 ml/min; Globulin 3.0 gm/dl (2.5-4.0); Glucose 155.0 mg/dl (70-99(Fasting)); Total Protein 6.0 gm/dl (6.0-8.3)
[2025-07-20 23:45] VITALS: O2SAT 98
--- NOTE | 2025-07-21 05:47 | Obstetrical Progress Note ---
Date of Service <Vanita Ashraf DO - Last Filed: 07/21/25 07:12> July 21, 2025 Assessment & Plan <Vanita Ashraf DO - Last Filed: 07/21/25 07:12> (1) care following delivery: Plan 29 yo post- day 2 s/p Feels well today. Vital signs stable Continue post- care Encourage ambulation and Pain controlled with ibuprofen Hgb stable Discharge home today, follow up with Dr. Gupta in 6 weeks. Follow up in office in 1 week for blood pressure check. 400 mg Labetalol BID, prescription sent. <Nikole Strauss MD - Last Filed: 07/21/25 07:18> (1) care following delivery: Subjective <Vanita Ashraf DO - Last Filed: 07/21/25 07:12> 29 yo post- day 2 s/p Ambulation: ambulating normally Voiding: no voiding problems Passing Gas:: Yes Passing Stool:: Yes Diet Tolerance:: regular diet Lochia:: Small Feeding Type:: bottle feeding Current Pain Level: 0/10 Resting comfortably this AM in NAD. Denies HARTMAN, CP, SOB, N/V/D, LE pain/swelling. Review of Systems All systems reviewed & are unremarkable except as noted in HPI & below Physical Exam <Vanita Ashraf DO - Last Filed: 07/21/25 07:12> General: patient resting comfortably, NAD, non-toxic in appearance, AA&O x 4, answers questions appropriately. Skin: warm, dry, intact HEENT: NC/AT, anicteric sclera, conjunctiva without injection, moist mucus membranes. Heart: +S1/S2, regular, no m/r/g Lungs: equal air entry bilaterally, no rales/rhonchi/wheezes Abd: +BS, soft, NT/ND, uterine fundus firm at umbilicus, caesarean incision C/D/I. Ext: warm, no clubbing/cyanosis, bilateral 1+ pitting edema in lower extremities, Star's neg. Neuro: nonfocal, patient AA&O x 4, speech intact, no facial droop, moving all extremities on command. Results & Data <Vanita Ashraf, DO - Last Filed: 07/21/25 07:12> Vital Signs (Past 12 Hours) Vital Signs Temp Pulse Pulse Resp BP BP Pulse Ox 07/21/25 01:28 120/77 07/21/25 00:28 114/76 07/20/25 23:15 36.8 C 96 H 18 129/84 134/90 98 07/20/25 22:44 105 H 125/84 07/20/25 21:20 106 H 136/86 163/101 H 07/20/25 20:26 106 H 151/101 H 07/20/25 20:20 114 H 166/105 H 07/20/25 19:00 37 C 102 H 16 163/100 H 99 O2 Del Method 07/21/25 01:28 07/21/25 00:28 07/20/25 23:15 Room Air 07/20/25 22:44 07/20/25 21:20 07/20/25 20:26 07/20/25 20:20 07/20/25 19:00 Room Air Laboratory Results OB Labs: Blood Type O Positive 12/31/24 Antibody Screen NEGATIVE 12/31/24 Hgb 13.4 g/dl (12.0-16.0) 04/30/25 Hct 39.4 % (37.0-47.0) 04/30/25 MCV 85.5 fL (80.0-100.0) 12/31/24 Plt Count 314 K/uL (130-400) 12/31/24 Rubella IgG Antibody Equivocal (Immune) L 12/31/24 Treponema pallidum Ab Negative (Negative) 04/30/25 Hep Bs Antigen Negative (Negative) 12/31/24 Hepatitis C Antibody Negative (Negative) 12/31/24 Hepatitis C Ab (EIA) NON-REACTIVE (NON-REACTIVE) 01/15/24 HIV 1&2 Ab/P24 Ag 4thGn Negative (Negative) 12/31/24 Glucose 1 Hr 50 gm 133 mg/dl (70-130) H 04/30/25 OB Optional Labs: Chlamydia trachomatis RNA Not Detected (NotDetected) 12/31/24 Neisseria gonorrhoeae RNA Not Detected (NotDetected) 12/31/24 Thyroid Stimulating Hormone (TSH) 1.804 uIu/ml (0.300-4.500) 08/26/24 Supervising Physician <Nikole B. Rica, MD - Last Filed: 07/21/25 07:18> Co-Signing Physician Notes Resident Physician Supervision Note: I interviewed and examined the patient. Discussed with Dr. Ashraf and agree with findings and plan as documented in the note. Any exceptions or clarifications are listed here: Documented By: Nikole Strauss MD, FACOG Resident Activity Tracking <Vanita Ashraf DO - Last Filed: 07/21/25 07:12> Resident Involvement: Resident Care Provided Care Provided: OB Delivery
[2025-07-21 06:07] LABS: Hematocrit (blood only) 30.7 % (37.0-47.0); Hemoglobin 10.4 g/dl (12.0-16.0)
[2025-07-21 07:56] VITALS: PULSE 88; RESP 16; TEMP 97.9
[2025-07-21] MEDS: LABETALOL HCL 200 MG TAB PO SCH (08:49)
[2025-07-21] MEDS ORDERED: IBUPROFEN 600 MG TAB PO PRN (09:00)
[2025-07-21 09:54] VITALS: BP 118/82
[2025-07-21] MEDS ORDERED: ACETAMINOPHEN 325 MG TAB PO PRN (15:00)
== END 2025-07-21 10:30 | disposition home or self-care (01) | DRG 788 ==
LOC: 4S1 05:20 → EDSTATUS 07:30 → 4E2 07-20 11:00